=== PATIENT | female | born 1985 | race Caucasian/White ===

== ENCOUNTER → 2022-07-31 06:38 | Outpatient (CLI) | payer MEDICAID, SELFPAY ==
[2022-07-31 19:32] LABS: Chloride 103 mmol/L (98-107); Potassium 4.7 mmoL/L (3.5-5.1); Sodium 138 mmol/L (136-145)
[2022-07-31 19:33] LABS: Basophils # 0.2 K/mm3 (0-0.2); Basophils % 2.1 % (0.1-2.0); Eosinophils # 0.3 K/mm3 (0.0-0.4); Eosinophils % 3.6 % (0.1-12.0); Hematocrit 53.1 % (37.0-47.0); Hemoglobin 16.6 g/dL (12.2-16.2); Lymphocytes % 27.9 % (10-50); Mean Corpuscular HGB Conc 31.2 g/dL (31.8-35.4); Mean Corpuscular Hemoglobin 29.9 pg (27.0-31.2); Mean Corpuscular Volume 95.7 fl (81-99); Monocytes # 0.4 K/mm3 (0.1-1.0); Monocytes % 5.6 % (1.7-9.3); Neutrophils # 4.4 K/mm3 (1.8-7.8); Neutrophils % 60.8 % (37.0-80.0); Platelet Count 232 K/mm3 (142-424); Red Blood Count 5.54 M/mm3 (4.20-5.40); Red Cell Distribution Width 12.7 % (11.5-17.5); White Blood Count 7.2 K/mm3 (4.8-10.8)
[2022-07-31 19:35] LABS: Alanine Aminotransferase 43 U/L (12-78); Albumin Level 3.8 g/dl (3.5-5.0); Alkaline Phosphatase 95 U/L (38-126); Anion Gap 8.7 mEq/L (5-15); Aspartate Amino Transferase 40 U/L (14-36); Bilirubin,Total 0.4 mg/dl (0.2-1.3); Blood Urea Nitrogen 17 mg/dl (7-17); Calcium 8.9 mg/dl (8.4-10.2); Carbon Dioxide 31 mmol/L (22.0-30.0); Estimated Glomerular Filt Rate 62 ml/min (>60); GFR (African American) 75 ML/MIN (>60); Globulin 3.7 g/dL (1.3-3.2); Glucose 64 mg/dl (74-100); Total Protein,Serum 7.5 g/dl (6.3-8.2)
[2022-07-31 20:06] LABS: Thyroid Stimulating Hormone 4.11 uIU/mL (0.465-4.68)
== END ==
PROVIDERS: PCP Nurse Practitioner; Visit Provider Nurse Practitioner
DX: E04.1 Nontoxic single thyroid nodule (principal); I10 Essential (primary) hypertension; Z13.1 Encounter for screening for diabetes mellitus; Z79.899 Other long term (current) drug therapy
CPT/HCPCS: 80053; 83036; 84443; 85025

== ENCOUNTER 2023-06-16 11:16 | Emergency (ER) | payer MEDICAID, SELFPAY ==
[2023-06-16 11:25] VITALS: BP 135/81; PULSE 95; RESP 14; TEMP 36.6; O2SAT 98; BMI 31.9
[2023-06-16] MEDS: IBUPROFEN 400 MG TABLET 800 MG PO (13:25)
[2023-06-16] MEDS: ACETAMINOPHEN 500MG TAB 1000 MG PO (13:25)
[2023-06-16] MEDS: TETRACAINE/BENZOCAINE/BUTAMBEN 56 GM SPRAY TP (13:25)
[2023-06-16] MEDS: LIDOCAINE 2% VISCOUS SOL 15ML UDC 15 ML PO (13:25)
--- NOTE | 2023-06-16 13:40 | PC.NURSE ---
I rounded on the pt, she states she is ready to go. I informed
--- NOTE | 2023-06-16 14:12 | ED_ITS ---
Discharge Plan Disposition Patient Disposition: Home, Self-Care Condition: Good Prescriptions Prescriptions: New ibuprofen [IBU] 800 mg tablet 800 mg PO Q6H PRN (Reason: pain) 3 Days Qty: 12 0RF hydrocodone-acetaminophen 5-325 mg tablet 1 tab PO Q6H PRN (Reason: pain) 2 Days Qty: 6 0RF amoxicillin 500 mg capsule 500 mg PO BID 10 Days Qty: 20 0RF No Action metoprolol succinate 25 mg tablet extended release 24 hr See Rx Instructions .ROUTE .COMPLEX Qty: 90 1RF Dose Instruction: TAKE 1 TABLET BY MOUTH EVERY DAY Rx Instructions: TAKE 1 TABLET BY MOUTH EVERY DAY lisinopril-hydrochlorothiazide 20-12.5 mg tablet See Rx Instructions .ROUTE .COMPLEX Qty: 90 1RF Dose Instruction: TAKE 1 TABLET BY MOUTH EVERY DAY Rx Instructions: TAKE 1 TABLET BY MOUTH EVERY DAY cefdinir 300 mg capsule 300 mg PO BID Qty: 20 0RF ciprofloxacin-dexamethasone 0.3-0.1 % drops,suspension 4 drp otic (ear) BID 7 Days Qty: 7.5 0RF cetirizine 10 mg tablet See Rx Instructions .ROUTE .COMPLEX Qty: 30 5RF Dose Instruction: TAKE 1 TABLET BY MOUTH EVERY DAY Rx Instructions: TAKE 1 TABLET BY MOUTH EVERY DAY bupropion HCl 150 mg tablet extended release 24 hr See Rx Instructions .ROUTE .COMPLEX Qty: 14 0RF Dose Instruction: TAKE 1 TABLET BY MOUTH EVERY DAY Rx Instructions: TAKE 1 TABLET BY MOUTH EVERY DAY Referrals Follow up/Referrals: Daksha Almendarez APRN [Primary Care Provider] - See instructions Activity Restrictions/Add. Instructions Additional Instructions/Restrictions: As discussed, you may follow-up with urgent care dental clinic. You may also choose a dentist if you choice. I provided you with prescriptions for and milligrams ibuprofen. I have also given you a couple days of [place] to assist. Please use as needed. I have also given a prescription for amoxicillin to treat underlying infection. Clinical Impressions Clinical Impression: Pain, dental, Facial swelling Discharge ED Provider: Jett Ferreira Adult HPI General Chief complaint: Dental/Oral Stated complaint: swollen tooth and jaw Time Seen by Provider: 06/16/23 13:01 Mode of Arrival: Ambulatory Source of Information: Patient Limitations: No Limitations Description of Symptoms (Recalled from ER Triage Doc. by RN): pt c/o L lower dental pain from a tooth partially falling out. pt presents with L lower face/lip edema and pain 10/10. pt states this occured yesterday and she has not been able to get into a dentist. History of Present Illness HPI narrative: 38-year-old female with past medical history significant for hypertension, presents today for evaluation concerning left lower dental pain and significant left-sided facial swelling over the past day. Patient states that she has a tooth that has been fractured for years and has not seen a dentist for this issue as of yet. She denies any difficulty with tolerating oral intake. Denies any fevers, chills, chest pain, shortness of breath or any other associated symptoms at this time. No further complaints. Pain is rated as a 10 out of 10. Related Data Previous Rx's Medication Instructions Recorded cetirizine 10 mg tablet See Rx Instructions .Route 02/16/23 .COMPLEX #30 tabs bupropion HCl 150 mg 24 hr tablet, See Rx Instructions .Route 02/27/23 extended release .COMPLEX #14 tabs cefdinir 300 mg capsule 300 mg PO BID #20 caps 04/02/23 ciprofloxacin 0.3 %-dexamethasone 4 drp otic (ear) BID 7 days #7.5 mL 04/02/23 0.1 % ear drops,suspension lisinopril 20 See Rx Instructions .Route 04/02/23 mg-hydrochlorothiazide 12.5 mg .COMPLEX #90 tabs tablet metoprolol succinate 25 mg See Rx Instructions .Route 04/02/23 tablet,extended release 24 hr .COMPLEX #90 tabs amoxicillin 500 mg capsule 500 mg PO BID 10 days #20 caps 06/16/23 hydrocodone 5 mg-acetaminophen 325 1 tab PO Q6H PRN pain 2 days #6 06/16/23 mg tablet tabs ibuprofen 800 mg tablet (IBU) 800 mg PO Q6H PRN pain 3 days #12 06/16/23 tabs Allergies Allergy/AdvReac Type Severity Reaction Status Date / Time No Known Allergies Allergy Verified 06/16/23 11:28 [facility] Disclaimer: The information contained in this section may have been updated after the patient was seen, as this information can be updated by other users. Medical History Allergic rhinitis Essential hypertension History of intravenous drug abuse Thyroid nodule Surgical History Hx of tonsillectomy Hx of tubal ligation Family History Father Hypertension Heart attack Grandmother Stroke Mother Hypertension Acute Crohn's disease Social History Smoking Status: Current every day smoker tobacco type: cigarettes alcohol intake: never current occupational status: unemployed Travel in the last 8 weeks: None ROS Obtained: Yes All systems reviewed & no additional complaints except as documented Physical Exam General General appearance: alert and in no apparent distress Head Head exam: atraumatic and normocephalic Eye Eye exam: Present normal appearance, PERRL and EOMI ENT ENT exam: Present normal oropharynx, mucous membranes moist and other (Moderate left-sided facial swelling. Tooth #23 is fractured at the gumline. Mild gingival swelling however no palpable abscess.) Neck Neck exam: Present full ROM; Absent meningismus Respiratory Respiratory exam: Absent respiratory distress, wheezes, stridor or accessory muscle use Cardiovascular Cardiovascular exam: Present normal rhythm Abdominal Exam Abdominal exam: Present soft; Absent distention, tenderness, guarding, rebound or rigidity Neurological Exam Neurological exam: Present alert, oriented X3 and CN II-XII intact; Absent motor sensory deficit Psychiatric Psychiatric exam: Present normal affect and normal mood Skin Skin exam: Present warm and dry Medical Decision Making Medical Records Medical records reviewed: Yes I reviewed the patient's medical records. Denzel Inquiry Pt receiving controlled substance: No Denzel was queried for this patient: No Vital Signs: 06/16/23 11:25 Temperature 97.9 F Temperature Source Oral Pulse Rate [Left] 95 H Respiratory Rate 14 Blood Pressure [Right Arm] 135/81 Blood Pressure Mean [Right Arm] 99 Blood Pressure Source [Right Arm] Automatic Cuff Blood Pressure Position [Right Arm] Sitting 02 Sat by Pulse Oximetry 98 Oxygen Delivery Method Room Air Orders (Tests/Meds): ED MEDICATIONS Discontinued Medications Generic Name Dose Route Start Last Admin Trade Name Freq PRN Reason Stop Dose Admin Acetaminophen 1,000 mg 06/16/23 13:15 06/16/23 13:25 Acetaminophen 500mg Tab PO 06/16/23 13:16 1,000 mg ONCE ONE Administration Benzocaine/Butamben/Tetracaine HCl 1 gm 06/16/23 13:15 06/16/23 13:25 Tetracaine/Benzocaine/Butamben 56 Gm [place] TP 06/16/23 13:16 1 gm ONCE ONE Administration Ibuprofen 800 mg 06/16/23 13:15 06/16/23 13:25 Ibuprofen 400 Mg Tablet PO 06/16/23 13:16 800 mg ONCE ONE Administration Lidocaine HCl 15 ml 06/16/23 13:15 06/16/23 13:25 Lidocaine 2% Viscous Dilcia 15ml Udc PO 06/16/23 13:16 15 ml ONCE ONE Administration Medical Decision Narrative: 38-year-old female with past medical history significant for hypertension, presents today for evaluation concerning left lower dental pain and significant left-sided facial swelling over the past day. Patient states that she has a tooth that has been fractured for years and has not seen a dentist for this iss ue as of yet. She denies any difficulty with tolerating oral intake. On assessment, the patient was hemodynamically stable and in no acute distress. Afebrile. Physical exam was remarkable for moderate left-sided facial swelling. There was also mild gingival swelling near tooth 23 that appears to be fractured at the gumline. No palpable abscesses. No trismus. Otherwise exam findings unremarkable. Diagnoses include but are not limited to dental abscess, dental fracture, dental caries, among others. Patient was given tooth balls and ibuprofen while in the ED as well as ibuprofen and Tylenol. Symptoms were somewhat improved after to follow-up. I discussed with patient ED workup and current plan to treat with a course of amoxicillin. Also instructed patient concerning [facility] urgent [facility] clinic follow-up. Also discussed that she could find a dentist of her preference. She verbalized understanding agreement with plan. I provided her with return ED precautions. She was discharged home in medically stable and in no acute distress. Critical Care Critical Care Time Critical Care Time: No
[2023-06-16 14:17] VITALS: BP 135/81; PULSE 95; RESP 14; TEMP 36.6; O2SAT 98
== END 2023-06-16 14:18 | disposition home or self-care (01) ==
PROVIDERS: Emergency Provider Emergency Medicine; PCP Nurse Practitioner
DX: R22.0 Localized swelling, mass and lump, head (principal); K08.89 Other specified disorders of teeth and supporting structures; I10 Essential (primary) hypertension; F17.210 Nicotine dependence, cigarettes, uncomplicated
CPT/HCPCS: 99283

== ENCOUNTER 2024-02-23 11:13 | Outpatient (CLI) | payer MEDICAID, SELFPAY ==
[2024-02-23 18:33] LABS: Microalbumin/Creatinine Ratio 11.4
[2024-02-23 18:37] LABS: Creatinine,Urine Random 249 mg/dL (Not Estab.)
== END 2024-02-23 23:59 | disposition home or self-care (01) ==
LOC: LAB.DROPOF 02-24 11:13
PROVIDERS: PCP Nurse Practitioner; Visit Provider Nurse Practitioner
DX: I10 Essential (primary) hypertension (principal); Z72.0 Tobacco use
CPT/HCPCS: 82043; 82570

== ENCOUNTER 2025-03-16 09:10 | Outpatient (CLI) | payer MEDICAID, SELFPAY ==
[2025-03-16 18:47] LABS: Hematocrit 42.1 % (37.0-47.0); Hemoglobin 14.1 g/dL (12.2-16.2); Immature Granulocytes % 0.3 %; Mean Corpuscular HGB Conc 33.5 g/dL (31.8-35.4); Mean Corpuscular Hemoglobin 31.1 pg (27.0-31.2); Mean Corpuscular Volume 92.9 fl (81-99); Nucleated Red Blood Cells % 0 %; Platelet Count 220 K/mm3 (142-424); Red Blood Count 4.53 M/mm3 (4.20-5.40); Red Cell Distribution Width-SD 42.1 fL; White Blood Count 7.5 K/mm3 (4.8-10.8)
[2025-03-16 19:11] LABS: Alanine Aminotransferase 47 U/L (12-78); Albumin Level 3.7 g/dl (3.5-5.0); Albumin/Globulin Ratio 1.1 (1.1-1.8); Alkaline Phosphatase 78 U/L (38-126); Anion Gap 7.7 mEq/L (5-15); Aspartate Amino Transferase 39 U/L (14-36); Bilirubin,Total 0.5 mg/dl (0.2-1.3); Blood Urea Nitrogen 13 mg/dl (7-17); Calcium 9.0 mg/dl (8.4-10.2); Carbon Dioxide 27 mmol/L (22.0-30.0); Chloride 104 mmol/L (98-107); Cholesterol 139 mg/dl (140-200); Creatinine,Serum 1.10 mg/dl (0.52-1.04); Estimated Glomerular Filt Rate 55 ml/min (>60); GFR (African American) 67 ML/MIN (>60); Globulin 3.3 g/dL (1.3-3.2); Glucose 122 mg/dl (74-100); HDL Cholesterol 48 mg/dl (40-60); Potassium 3.7 mmoL/L (3.5-5.1); Sodium 135 mmol/L (136-145); Total Protein,Serum 7.0 g/dl (6.3-8.2); Triglycerides 45 mg/dl (30-150)
[2025-03-16 19:42] LABS: Thyroid Stimulating Hormone 4.48 uIU/mL (0.465-4.68)
[2025-03-16 19:59] LABS: Hepatitis C Ab Qual. W/ RFX REACTIVE (Negative)
[2025-03-18 08:17] LABS: Hepatitis B Surface Antigen Negative (Negative)
== END 2025-03-16 23:59 ==
LOC: LAB.DROPOF 03-20 09:11
PROVIDERS: PCP Nurse Practitioner; Visit Provider Nurse Practitioner Family
DX: E78.5 Hyperlipidemia, unspecified (principal); Z11.59 Encounter for screening for other viral diseases; I10 Essential (primary) hypertension
CPT/HCPCS: 80053; 80061; 84443; 85025; 86803; 87340; 87389; 87522